=== PATIENT | male | born 1950 | race Caucasian/White ===

== ENCOUNTER 2017-03-26 12:49 | Inpatient (IN) | payer OTHER ==
[~2017-03-26] VITALS: Ht 188 cm; Wt 147.5 kg
[2017-03-26] VITALS (7 sets, daily range): BP systolic 113–167; BP diastolic 46–63
[~2017-03-26 12:49] MED LIST: ADULT LOW DOSE81 M1 PO; ALENDRONATE SOD70 MG PO; AMLODIPINE BESYL5 MG PO; AMLODIPINE-BEN1 EAC4 PO; ASPIR 8181 M1 PO; ATORVASTATIN CA40 MG PO; BACTRIM,SEPT1 TABLET PO; BENADRYL25 MG PO; BENAZEPRIL HCL20 MG PO; CATAPRES0.1 MG PO; CENTRUM SILVER1 EAC1 PO; CLARINEX5 MG PO; CLARITIN,ALAVAR10 MG PO; CLONIDINE HCL0.1 MG PO; CLONIDINE HCL0.3 MG PO; CRESTOR10 MG PO; Claritin,Alavart PO; DITROPAN2.5 MG PO; DOK PLUS TABLE1 EACH PO; DULCOLAX10 MG PR; ERGOCALCIF50000 UNIT PO; FERROUS SULFAT325 MG PO; FISH OIL 1,0001 EA11 PO; FISH OIL CONC1 EACH PO; FLEET MINERAL133 ML PR; FLORASTOR250 MG PO; FUROSEMIDE40 MG PO; GLUCOPHAGE1000 MG PO; HUMALOG100 UNIT/1 SC; HUMALOG100 UNIT/2 SC; HYDROCHLOROTHIA25 MG PO; HYDROCODON-ACE1 EAC7 PO; HYDROMORPHONE HC2 MG PO; Habitrol,Nicoderm CQ TD; IRON325 MG PO; LANTUS 3 M100 UNITS/ SC; LANTUS 3 M100 UNITS1 SC; LASIX40 MG PO; LEVEMIR100 UNIT/2 SC; LIPITOR40 MG PO; LISINOPRIL40 MG PO; LO-DOSE ASPIRIN81 M2 PO; LOTENSIN20 MG PO; LOVENOX40 MG/0.4 SC; Lotrel 5/20 PO; MELOXICAM7.5 MG PO; METFORMIN HCL1000 MG PO; MILK OF MAGN PO; NORCO 5/3251 TABLET PO; NOVOLOG PE100 UNITS/ SC; OXYCODONE HCL5 MG PO; PANTOPRAZOLE SO40 MG PO; PRILOSEC OTC20 MG PO; SENOKOT S,PE1 TABLET PO; THERAGRAN1 TABLET PO; TRAMADOL HCL50 MG PO; TRULICITY0.75 MG/0. SC; TYLENOL REGULA325 MG PO; ULTRAM50 MG PO; VANCOMYCIN HCL1 GM IV; Vitamin D, Drisdol PO; WELLBUTRIN XL300 MG PO; XARELTO10 MG PO; ZOFRAN4 MG/2 ML IM; Zocor PO; [UNRECOGNIZED DRUG - OTHER]
[2017-03-26 13:59] LABS: HEMATOCRIT 16.3 % (38.0-50.0); MCH 21.2 PG (29.0-34.0); MCHC 28.2 G/DL (30.0-36.0); MCV 75.1 FL (86-99); NRBC (%) 1.3 /100 WBC (0-0); PLATELET COUNT 419 K/uL (156-360); RBC DIS.WIDTH-CV 17.6 % (11.8-14.6); RED BLOOD COUNT 2.17 M/uL (4.00-5.50); WHITE BLOOD COUNT 10.2 K/uL (4.1-10.2)
[2017-03-26 14:00] LABS: CHLORIDE 106 mEq/L (99-109); POTASSIUM 5.2 mEq/L (3.7-5.4); SODIUM 138 mEq/L (136-147)
[2017-03-26 14:01] LABS: GLUCOSE 98 mg/dL (70-99)
[2017-03-26 14:03] LABS: ANION GAP 12 MEQ/L (2-14)
[2017-03-26 14:05] LABS: GFR ESTIMATE (CALCULATED) 29 mL/min/
[2017-03-26 14:06] LABS: UREA NITROGEN (BUN) 48 mg/dL (9-23)
[2017-03-26 14:11] LABS: TROP-I INTERPRETATION NEGATIVE; TROPONIN-I 0.17 ng/mL (0.0-0.30)
[2017-03-26] MEDS ORDERED: AMLODIPINE-BEN1 EAC4 PO (15:41)
[2017-03-26] MEDS ORDERED: ATORVASTATIN CA40 MG PO (15:42)
[2017-03-26] MEDS ORDERED: TANZEUM30 MG/0.5 SC (15:43)
[2017-03-26] MEDS ORDERED: DESLORATADINE5 MG PO (15:46)
[2017-03-26] MEDS ORDERED: PRILOSEC20 MG PO (15:47)
[2017-03-26] MEDS ORDERED: LATANOPROST2.5 ML BOTH EYES (15:48)
[2017-03-26] MEDS ORDERED: FIBER0.4 GM PO (15:48)
[2017-03-26] MEDS ORDERED: HUMULIN R500 UNIT/1 SC ×2 (15:49)
[2017-03-26 18:10] LABS: IMM.RETIC FRACTION 12.9 % (3-19)
[2017-03-26 18:12] LABS: RETICULOCYTE COUNT 2.2 % (0.5-1.8)
[2017-03-26 18:18] LABS: HEMATOCRIT 19.4 % (38.0-50.0); MCV 75.2 FL (86-99)
[2017-03-26 18:50] LABS: IRON 12 MCG/DL (35-150)
[2017-03-26 19:09] LABS: FERRITIN 6 NG/ML (22-322)
[2017-03-26 22:19] LABS: TROP-I INTERPRETATION NEGATIVE; TROPONIN-I 0.12 ng/mL (0.0-0.30)
[2017-03-26 23:19] LABS: MCV 77.2 FL (86-99)
[2017-03-27] VITALS (16 sets, daily range): BP systolic 97–135; BP diastolic 48–63
[2017-03-27 00:38] LABS: POINT-OF-CARE METER ID UU13113698
[2017-03-27 02:10] LABS: TROP-I INTERPRETATION NEGATIVE; TROPONIN-I 0.12 ng/mL (0.0-0.30)
[2017-03-27 03:31] LABS: POINT-OF-CARE METER ID UU13113698
[2017-03-27 03:55] LABS: POINT-OF-CARE METER ID UU13113698
[2017-03-27 06:55] LABS: HEMATOCRIT 22.5 % (38.0-50.0); MCH 24.9 PG (29.0-34.0); MCV 77.9 FL (86-99); MEAN PLAT.VOLUME 10.2 uM^3 (9.0-12.4); NRBC (%) 1.5 /100 WBC (0-0); PLATELET COUNT 370 K/uL (156-360); RBC DIS.WIDTH-CV 17.2 % (11.8-14.6); RBC DIS.WIDTH-SD 48.7 % (39-53); WHITE BLOOD COUNT 11.8 K/uL (4.1-10.2)
[2017-03-27 06:59] LABS: RED BLOOD COUNT 2.89 M/uL (4.00-5.50)
[2017-03-27 07:18] LABS: ALKALINE PHOSPHATASE 55 IU/L (3-129); ANION GAP 10 MEQ/L (2-14); CHLORIDE 104 MEQ/L (99-109); DIRECT BILIRUBIN 0.3 mg/dL (0.0-0.3); GFR ESTIMATE (CALCULATED) 40 mL/min/; POTASSIUM 4.5 MEQ/L (3.7-5.4); SAMPLE HEMOLYSIS CHECK 0; SAMPLE ICTERIC CHECK 0; SAMPLE LIPEMIA CHECK 0; SODIUM 138 MEQ/L (136-147); TOTAL BILIRUBIN 0.9 MG/DL (0.0-1.0); UREA NITROGEN (BUN) 40 mg/dL (9-23)
[2017-03-27 07:19] LABS: GLUCOSE 56 mg/dL (70-99)
[2017-03-27 07:21] LABS: INTER. NORMALIZED RATIO 1.2; PROTHROMBIN TIME 12.1 (9.2-11.2); PTT 25.5 (25-32)
[2017-03-27 07:24] LABS: POINT-OF-CARE METER ID UU13113698; POINT-OF-CARE USER ID 515034806
[2017-03-27 08:00] LABS: POINT-OF-CARE METER ID UU13113781; POINT-OF-CARE USER ID ENVKC36
[2017-03-27 11:25] LABS: POINT-OF-CARE METER ID UU13113698; POINT-OF-CARE USER ID ENVKC36
[2017-03-27 16:38] LABS: POINT-OF-CARE METER ID UU13113698; POINT-OF-CARE USER ID ENVKC36
[2017-03-27 21:29] LABS: POINT-OF-CARE METER ID UU14174216
[2017-03-28] VITALS (10 sets, daily range): BP systolic 110–153; BP diastolic 57–71
[2017-03-28 05:28] LABS: BASOPHIL COUNT 0.1 K/uL (0-0.1); EOSINOPHIL COUNT 0.5 K/uL (0-0.3); HEMATOCRIT 24.7 % (38.0-50.0); IMMATURE GRANULOCYTE COUNT 0.1 K/uL; INSTRUMENT ABS NEUTROPHIL CT 9.2 K/uL; LYMPHOCYTE COUNT 2.3 K/uL (1.0-2.8); MCH 25.4 PG (29.0-34.0); MCV 79.4 FL (86-99); MONOCYTE (%) 8.5 % (3-12); MONOCYTE COUNT 1.1 K/uL (0-0.8); NEUTROPHIL (%) 69.1 % (45-76); NEUTROPHIL COUNT 9.2 K/uL (1.8-6.4); PLATELET COUNT 365 K/uL (156-360); RBC DIS.WIDTH-CV 17.5 % (11.8-14.6); RBC DIS.WIDTH-SD 50.6 % (39-53); RED BLOOD COUNT 3.11 M/uL (4.00-5.50); WHITE BLOOD COUNT 13.4 K/uL (4.1-10.2)
[2017-03-28 06:12] LABS: ALKALINE PHOSPHATASE 57 IU/L (3-129); ANION GAP 9 MEQ/L (2-14); CHLORIDE 104 MEQ/L (99-109); GFR ESTIMATE (CALCULATED) 46 mL/min/; SAMPLE HEMOLYSIS CHECK 0; SAMPLE ICTERIC CHECK 0; SAMPLE LIPEMIA CHECK 0; SODIUM 135 MEQ/L (136-147); UREA NITROGEN (BUN) 29 mg/dL (9-23)
[2017-03-28 06:36] LABS: GLUCOSE 150 mg/dL (70-99)
[2017-03-28 07:57] LABS: POINT-OF-CARE METER ID UU13113781; POINT-OF-CARE USER ID ENVKC36
[2017-03-28 10:56] LABS: POINT-OF-CARE METER ID UU13113698
[2017-03-28 11:10] LABS: ADD MIUA? NO; BILIRUBIN NEGATIVE; BLOOD NEGATIVE; COLOR YELLOW ((YELLOW)); GLUCOSE (STRIP) NEGATIVE; KETONES NEGATIVE; LEUKOCYTES NEGATIVE; NITRITE NEGATIVE; PROTEIN (STRIP) NEGATIVE; UCUL ADDED? NO; UROBILINOGEN 0.2 MG/DL (0.2-1.0)
[2017-03-28 11:21] LABS: POINT-OF-CARE METER ID UU13113781; POINT-OF-CARE USER ID 515034806
[2017-03-28 14:50] LABS: POC NON-PRINT COM 1 ND
[2017-03-28 16:24] LABS: POINT-OF-CARE METER ID UU13113781; POINT-OF-CARE USER ID ENVKC36
[2017-03-28 21:19] LABS: POINT-OF-CARE METER ID UU13113698
[2017-03-29 01:30] VITALS: BP 115/68
[2017-03-29 04:24] VITALS: BP 91/54
[2017-03-29 05:15] LABS: BASOPHIL COUNT 0.1 K/uL (0-0.1); EOSINOPHIL (%) 5.1 % (0-5); EOSINOPHIL COUNT 0.6 K/uL (0-0.3); HEMATOCRIT 27.9 % (38.0-50.0); IMMATURE GRANULOCYTE (%) 0.8 % (0.0-0.7); IMMATURE GRANULOCYTE COUNT 0.1 K/uL; INSTRUMENT ABS NEUTROPHIL CT 7.5 K/uL; MCH 25.5 PG (29.0-34.0); MCHC 31.2 G/DL (30.0-36.0); MCV 81.8 FL (86-99); MEAN PLAT.VOLUME 10.2 uM^3 (9.0-12.4); MONOCYTE (%) 7.7 % (3-12); MONOCYTE COUNT 0.9 K/uL (0-0.8); NEUTROPHIL (%) 67.4 % (45-76); NEUTROPHIL COUNT 7.5 K/uL (1.8-6.4); NRBC (%) 0.5 /100 WBC (0-0); PLATELET COUNT 335 K/uL (156-360); RBC DIS.WIDTH-CV 17.7 % (11.8-14.6); RED BLOOD COUNT 3.41 M/uL (4.00-5.50); WHITE BLOOD COUNT 11.1 K/uL (4.1-10.2)
[2017-03-29 05:38] LABS: ALKALINE PHOSPHATASE 59 IU/L (3-129); ANION GAP 9 MEQ/L (2-14); CHLORIDE 108 MEQ/L (99-109); GFR ESTIMATE (CALCULATED) 54 mL/min/; GLUCOSE 140 mg/dL (70-99); POTASSIUM 4.5 MEQ/L (3.7-5.4); SAMPLE HEMOLYSIS CHECK 0; SAMPLE ICTERIC CHECK 0; SAMPLE LIPEMIA CHECK 0; SODIUM 139 MEQ/L (136-147); TOTAL BILIRUBIN 1.1 MG/DL (0.0-1.0); UREA NITROGEN (BUN) 20 mg/dL (9-23)
[2017-03-29 07:35] VITALS: BP 136/61
[2017-03-29 08:11] LABS: POINT-OF-CARE METER ID UU14174216
[2017-03-29 11:07] VITALS: BP 128/59
[2017-03-29 19:02] VITALS: BP 145/66
[2017-03-29 19:30] VITALS: BP 128/78
[2017-03-29 20:47] LABS: POINT-OF-CARE METER ID UU14174216
[2017-03-30] VITALS: BP 117/58
[2017-03-30 03:30] VITALS: BP 116/54
[2017-03-30 07:04] VITALS: BP 139/65
[2017-03-30 07:53] LABS: POINT-OF-CARE METER ID UU13113698
[2017-03-30 10:18] LABS: HEMATOCRIT 29.7 % (38.0-50.0); MCH 25.9 PG (29.0-34.0); MCHC 30.6 G/DL (30.0-36.0); MCV 84.4 FL (86-99); MEAN PLAT.VOLUME 10.4 uM^3 (9.0-12.4); NRBC (%) 0.3 /100 WBC (0-0); PLATELET COUNT 357 K/uL (156-360); RBC DIS.WIDTH-SD 54.2 % (39-53); RED BLOOD COUNT 3.52 M/uL (4.00-5.50); WHITE BLOOD COUNT 11.7 K/uL (4.1-10.2)
[2017-03-30] MEDS ORDERED: NICOTINE PATCH1 EAC2 TD (10:58)
[2017-03-30] MEDS ORDERED: PANTOPRAZOLE SO40 MG PO (11:00)
[2017-03-30 11:19] LABS: POINT-OF-CARE METER ID UU13113698
[2017-03-30 12:57] VITALS: BP 135/60
== END 2017-03-30 12:57 | disposition home or self-care (01) | DRG 378 ==
LOC: EME 12:49 → 4EAST 16:28 → EDOF 16:28 → 4EAST 23:43
PROVIDERS: Hospitalist; Internal Medicine; Internal Medicine Gastroenterology
PROC: 30233N1 Transfusion of Nonautologous Red Blood Cells into Peripheral Vein, Percutaneous Approach (ICD-10-PCS; principal; 2017-03-27)
PROC: 0DB68ZX Excision of Stomach, Via Natural or Artificial Opening Endoscopic, Diagnostic (ICD-10-PCS; 2017-03-28)
PROC: 0DBK8ZX Excision of Ascending Colon, Via Natural or Artificial Opening Endoscopic, Diagnostic (ICD-10-PCS; 2017-03-29)
DX: K92.2 Gastrointestinal hemorrhage, unspecified (principal); N17.9 Acute kidney failure, unspecified; I24.8 Other forms of acute ischemic heart disease; R06.00 Dyspnea, unspecified; D64.9 Anemia, unspecified; J44.9 Chronic obstructive pulmonary disease, unspecified; E66.01 Morbid (severe) obesity due to excess calories; N40.0 Benign prostatic hyperplasia without lower urinary tract symptoms; R53.1 Weakness; K59.00 Constipation, unspecified; I10 Essential (primary) hypertension; E11.9 Type 2 diabetes mellitus without complications; E78.5 Hyperlipidemia, unspecified; Z96.649 Presence of unspecified artificial hip joint; R19.5 Other fecal abnormalities; F17.210 Nicotine dependence, cigarettes, uncomplicated; M19.90 Unspecified osteoarthritis, unspecified site; D12.4 Benign neoplasm of descending colon; K64.8 Other hemorrhoids; Z96.652 Presence of left artificial knee joint; K57.90 Diverticulosis of intestine, part unspecified, without perforation or abscess without bleeding; G47.33 Obstructive sleep apnea (adult) (pediatric); K57.30 Diverticulosis of large intestine without perforation or abscess without bleeding; R10.9 Unspecified abdominal pain; K44.9 Diaphragmatic hernia without obstruction or gangrene; K29.40 Chronic atrophic gastritis without bleeding; R26.2 Difficulty in walking, not elsewhere classified; K21.9 Gastro-esophageal reflux disease without esophagitis; I25.10 Atherosclerotic heart disease of native coronary artery without angina pectoris; R42 Dizziness and giddiness; Z88.0 Allergy status to penicillin; Z68.41 Body mass index [BMI] 40.0-44.9, adult; Z88.6 Allergy status to analgesic agent; Z79.4 Long term (current) use of insulin; Z86.010 Personal history of colon polyps; Z87.891 Personal history of nicotine dependence; Q27.33 Arteriovenous malformation of digestive system vessel; Z86.73 Personal history of transient ischemic attack (TIA), and cerebral infarction without residual deficits
CPT/HCPCS: 74176; 76770; 80048; 80053; 80069; 80076; 81003; 82272; 82607; 82728; 82746; 82948; 83540; 84100; 84466; 84484; 85014; 85018; 85025; 85027; 85045; 85610; 85730; 86900; 86901; 86920; 88305; 88342 TC; 93005; 94640; 94660; 94799; 99202; 99281; 99285; C9113; G0103; J1756; J1815; J2250; J3010; J7030; J7050; P9016

== ENCOUNTER 2018-01-28 15:15 | Inpatient (IN) | payer OTHER ==
[2018-01-28] VITALS (11 sets, daily range): BP systolic 90–133; BP diastolic 41–66
[~2018-01-28] VITALS: Ht 189.2 cm; Wt 138.0 kg
[~2018-01-28 15:15] MED LIST changes: +DESLORATADINE5 MG PO; +FIBER0.4 GM PO; +HUMULIN R500 UNIT/1 SC; +LATANOPROST2.5 ML BOTH EYES; +NICOTINE PATCH1 EAC2 TD; +PRILOSEC20 MG PO; +TANZEUM30 MG/0.5 SC
[2018-01-28 16:28] LABS: HEMATOCRIT 14.4 % (38.0-50.0); MCH 19.7 PG (29.0-34.0); MCHC 28.5 G/DL (30.0-36.0); MCV 69.2 FL (86-99); NRBC (%) 0.9 /100 WBC (0-0); PLATELET COUNT 478 K/uL (156-360); RBC DIS.WIDTH-CV 18.6 % (11.8-14.6); RBC DIS.WIDTH-SD 46.7 % (39-53); RED BLOOD COUNT 2.08 M/uL (4.00-5.50); WHITE BLOOD COUNT 12.3 K/uL (4.1-10.2)
[2018-01-28 16:30] LABS: ALBUMIN 3.7 g/dL (3.2-4.8); HEMOGLOBIN 4.1 G/DL (12.5-16.6)
[2018-01-28 16:31] LABS: CHLORIDE 104 mEq/L (99-109); SODIUM 137 mEq/L (136-147)
[2018-01-28 16:33] LABS: GLUCOSE 53 mg/dL (70-99); TOTAL PROTEIN 6.8 g/dL (6.4-8.3)
[2018-01-28 16:35] LABS: TOTAL BILIRUBIN 0.5 mg/dL (0.0-1.0)
[2018-01-28 16:36] LABS: ALKALINE PHOSPHATASE 59 IU/L (3-129)
[2018-01-28 16:37] LABS: CREATININE 2.5 mg/dL (0.6-1.3); GFR ESTIMATE (CALCULATED) 27 mL/min/ (58.99-99999)
[2018-01-28 16:38] LABS: AST (GOT) 10 IU/L (2-34); UREA NITROGEN (BUN) 43 mg/dL (9-23)
[2018-01-28 16:39] LABS: TROP-I INTERPRETATION NEGATIVE; TROPONIN-I 0.07 ng/mL (0.0-0.30)
[2018-01-28 16:40] LABS: ALT (GPT) 9 IU/L (3-49)
[2018-01-28 17:30] LABS: APPEARANCE CLEAR ((CLEAR)); BILIRUBIN NEGATIVE; BLOOD NEGATIVE; COLOR YELLOW ((YELLOW)); GLUCOSE (STRIP) NEGATIVE; KETONES NEGATIVE; LEUKOCYTES NEGATIVE; NITRITE NEGATIVE; PROTEIN (STRIP) NEGATIVE; UROBILINOGEN 0.2 MG/DL (0.2-1.0)
[2018-01-28] MEDS ORDERED: PROTONIX40 MG PO (19:16)
[2018-01-28 21:26] LABS: MAGNESIUM 2.1 mg/dL (1.3-2.7)
[2018-01-28 21:31] LABS: PHOSPHORUS 3.8 mg/dL (2.5-4.9)
[2018-01-29] VITALS (15 sets, daily range): BP systolic 112–134; BP diastolic 55–88
[2018-01-29 02:49] LABS: HEMATOCRIT 20.8 % (38.0-50.0); HEMOGLOBIN 6.4 G/DL (12.5-16.6); MCV 73.8 FL (86-99)
[2018-01-29 03:02] LABS: TROP-I INTERPRETATION NEGATIVE; TROPONIN-I 0.07 ng/mL (0.0-0.30)
[2018-01-29 08:08] LABS: HEMATOCRIT 22.8 % (38.0-50.0); MCH 23.4 PG (29.0-34.0); MCHC 30.7 G/DL (30.0-36.0); MCV 76.3 FL (86-99); NRBC (%) 1.2 /100 WBC (0-0); PLATELET COUNT 417 K/uL (156-360); RBC DIS.WIDTH-CV 21.2 % (11.8-14.6); RBC DIS.WIDTH-SD 58.9 % (39-53); WHITE BLOOD COUNT 11.7 K/uL (4.1-10.2)
[2018-01-29 08:14] LABS: RED BLOOD COUNT 2.99 M/uL (4.00-5.50)
[2018-01-29 08:31] LABS: CHLORIDE 104 MEQ/L (99-109); GFR ESTIMATE (CALCULATED) 38 mL/min/ (58.99-99999); POTASSIUM 4.6 MEQ/L (3.7-5.4); SODIUM 134 MEQ/L (136-147); UREA NITROGEN (BUN) 35 mg/dL (9-23)
[2018-01-29 08:33] LABS: CREATININE 1.9 MG/DL (0.6-1.3); GLUCOSE 89 mg/dL (70-99)
[2018-01-29 17:50] LABS: HEMATOCRIT 27.8 % (38.0-50.0); HEMOGLOBIN 8.6 G/DL (12.5-16.6); MCV 76.8 FL (86-99)
[2018-01-30 04:20] VITALS: BP 131/63
[2018-01-30 05:22] LABS: HEMATOCRIT 27.6 % (38.0-50.0); HEMOGLOBIN 8.3 G/DL (12.5-16.6); MCH 23.6 PG (29.0-34.0); MCHC 30.1 G/DL (30.0-36.0); MCV 78.6 FL (86-99); NRBC (%) 0.7 /100 WBC (0-0); PLATELET COUNT 437 K/uL (156-360); RBC DIS.WIDTH-CV 20.8 % (11.8-14.6); RBC DIS.WIDTH-SD 58.5 % (39-53); RED BLOOD COUNT 3.51 M/uL (4.00-5.50); WHITE BLOOD COUNT 10.7 K/uL (4.1-10.2)
[2018-01-30 05:49] LABS: ALBUMIN 3.5 G/DL (3.2-4.8); ALKALINE PHOSPHATASE 49 IU/L (3-129); ALT (GPT) 8 IU/L (3-49); AST (GOT) 13 IU/L (2-34); CHLORIDE 107 MEQ/L (99-109); CREATININE 1.4 MG/DL (0.6-1.3); GFR ESTIMATE (CALCULATED) 53 mL/min/ (58.99-99999); GLUCOSE 186 mg/dL (70-99); POTASSIUM 4.6 MEQ/L (3.7-5.4); SODIUM 138 MEQ/L (136-147); TOTAL BILIRUBIN 1.3 MG/DL (0.0-1.0); UREA NITROGEN (BUN) 25 mg/dL (9-23)
[2018-01-30 07:01] VITALS: BP 133/60
[2018-01-30 07:49] LABS: BASOPHIL (%) 0.8 % (0-1); BASOPHIL COUNT 0.1 K/uL (0-0.1); EOSINOPHIL (%) 4.7 % (0-5); EOSINOPHIL COUNT 0.5 K/uL (0-0.3); IMMATURE GRANULOCYTE (%) 0.7 % (0.0-0.7); LYMPHOCYTE (%) 12.2 % (15-42); LYMPHOCYTE COUNT 1.3 K/uL (1.0-2.8); MONOCYTE COUNT 0.9 K/uL (0-0.8); NEUTROPHIL (%) 73.6 % (45-76); NEUTROPHIL COUNT 7.9 K/uL (1.8-6.4)
[2018-01-30 08:47] LABS: HEMOGLOBIN A1c (GLYCOHEMOGLOB) 5.3 % (Below 5.7)
[2018-01-30 11:15] VITALS: BP 140/65
[2018-01-30 15:09] VITALS: BP 150/68
[2018-01-30 20:09] VITALS: BP 136/61
[2018-01-31] VITALS (7 sets, daily range): BP systolic 126–167; BP diastolic 60–71
[2018-01-31 05:20] LABS: BASOPHIL (%) 0.8 % (0-1); BASOPHIL COUNT 0.1 K/uL (0-0.1); EOSINOPHIL (%) 5.2 % (0-5); EOSINOPHIL COUNT 0.5 K/uL (0-0.3); HEMATOCRIT 26.6 % (38.0-50.0); HEMOGLOBIN 7.9 G/DL (12.5-16.6); IMMATURE GRANULOCYTE (%) 0.6 % (0.0-0.7); LYMPHOCYTE (%) 14.8 % (15-42); LYMPHOCYTE COUNT 1.5 K/uL (1.0-2.8); MCH 23.4 PG (29.0-34.0); MCHC 29.7 G/DL (30.0-36.0); MCV 78.7 FL (86-99); MONOCYTE (%) 8.6 % (3-12); MONOCYTE COUNT 0.9 K/uL (0-0.8); NRBC (%) 0.3 /100 WBC (0-0); PLATELET COUNT 431 K/uL (156-360); RBC DIS.WIDTH-CV 21.2 % (11.8-14.6); RBC DIS.WIDTH-SD 59.8 % (39-53); RED BLOOD COUNT 3.38 M/uL (4.00-5.50)
[2018-01-31 05:46] LABS: ALBUMIN 3.2 G/DL (3.2-4.8); ALKALINE PHOSPHATASE 53 IU/L (3-129); ALT (GPT) 8 IU/L (3-49); AST (GOT) 13 IU/L (2-34); CHLORIDE 108 MEQ/L (99-109); CREATININE 1.2 MG/DL (0.6-1.3); GFR ESTIMATE (CALCULATED) > 59 mL/min/ (58.99-99999); GLUCOSE 169 mg/dL (70-99); POTASSIUM 4.2 MEQ/L (3.7-5.4); SODIUM 139 MEQ/L (136-147); TOTAL PROTEIN 5.7 G/DL (6.4-8.3); UREA NITROGEN (BUN) 15 mg/dL (9-23)
[2018-01-31 05:51] LABS: TOTAL BILIRUBIN 0.8 MG/DL (0.0-1.0)
[2018-01-31 18:06] LABS: HEMATOCRIT 30.7 % (38.0-50.0); HEMOGLOBIN 9.3 G/DL (12.5-16.6); MCV 80.4 FL (86-99)
== END 2018-01-31 18:56 | disposition home or self-care (01) | DRG 378 ==
LOC: EME 15:15 → 4EAST 20:05 → EDOF 20:05 → ENRESERV 20:06 → 4EAST 22:29
PROVIDERS: Hospitalist; Nurse Practitioner Family
PROC: 30233N1 Transfusion of Nonautologous Red Blood Cells into Peripheral Vein, Percutaneous Approach (ICD-10-PCS; principal; 2018-01-28)
DX: K92.2 Gastrointestinal hemorrhage, unspecified (principal); N17.9 Acute kidney failure, unspecified; I95.9 Hypotension, unspecified; E11.649 Type 2 diabetes mellitus with hypoglycemia without coma; I44.1 Atrioventricular block, second degree; D64.9 Anemia, unspecified; M54.2 Cervicalgia; I35.0 Nonrheumatic aortic (valve) stenosis; J44.9 Chronic obstructive pulmonary disease, unspecified; I10 Essential (primary) hypertension; E78.5 Hyperlipidemia, unspecified; K21.9 Gastro-esophageal reflux disease without esophagitis; F41.9 Anxiety disorder, unspecified; G47.33 Obstructive sleep apnea (adult) (pediatric); Z96.642 Presence of left artificial hip joint; E66.01 Morbid (severe) obesity due to excess calories; Z68.38 Body mass index [BMI] 38.0-38.9, adult; I69.351 Hemiplegia and hemiparesis following cerebral infarction affecting right dominant side; I69.311 Memory deficit following cerebral infarction; I69.398 Other sequelae of cerebral infarction; R20.9 Unspecified disturbances of skin sensation; Z79.4 Long term (current) use of insulin; Z87.891 Personal history of nicotine dependence; Z87.11 Personal history of peptic ulcer disease
CPT/HCPCS: 70450; 71045; 71046; 72125; 74176; 80048; 80053; 81003; 82607; 82948; 83036; 83735; 84100; 84484; 85014; 85018; 85025; 85027; 86850; 86900; 86901; 86920; 93005; 93306; 99281; 99285; A6214; C9113; J1815; J3010; J7030; J7042; P9016

== ENCOUNTER 2018-02-04 07:56 | Inpatient (IN) | payer OTHER ==
[~2018-02-04] VITALS: Ht 188 cm; Wt 132.9 kg
[~2018-02-04 07:56] MED LIST changes: +PROTONIX40 MG PO
[2018-02-04 09:03] LABS: HEMATOCRIT 32.7 % (38.0-50.0); MCH 24.7 PG (29.0-34.0); MCHC 30.6 G/DL (30.0-36.0); MCV 80.7 FL (86-99); PLATELET COUNT 381 K/uL (156-360); RBC DIS.WIDTH-SD 64.3 % (39-53); RED BLOOD COUNT 4.05 M/uL (4.00-5.50); WHITE BLOOD COUNT 8.2 K/uL (4.1-10.2)
[2018-02-04 09:13] LABS: ALBUMIN 3.7 g/dL (3.2-4.8); CHLORIDE 105 mEq/L (99-109)
[2018-02-04 09:14] LABS: POTASSIUM 3.9 mEq/L (3.7-5.4); SODIUM 140 mEq/L (136-147)
[2018-02-04 09:15] LABS: APPEARANCE CLEAR ((CLEAR)); BILIRUBIN NEGATIVE; BLOOD NEGATIVE; COLOR YELLOW ((YELLOW)); GLUCOSE (STRIP) NEGATIVE; KETONES NEGATIVE; LEUKOCYTES SMALL; NITRITE NEGATIVE; PROTEIN (STRIP) NEGATIVE; SPECIFIC GRAVITY 1.013 (1.000-1.030); UROBILINOGEN 0.2 MG/DL (0.2-1.0)
[2018-02-04 09:16] LABS: GLUCOSE 76 mg/dL (70-99); TOTAL PROTEIN 6.9 g/dL (6.4-8.3)
[2018-02-04 09:18] LABS: BACTERIA NONE SEEN /HPF; EPITHELIAL CELLS RARE /HPF; MUCUS TRACE /LPF; RED BLOOD CELLS 0-5 /HPF (0-5); UCUL ADDED? NO; WHITE BLOOD CELLS 0-5 /HPF (0-5)
[2018-02-04 09:19] LABS: ALKALINE PHOSPHATASE 65 IU/L (3-129); TOTAL BILIRUBIN 0.7 mg/dL (0.0-1.0)
[2018-02-04 09:20] LABS: CREATININE 1.1 mg/dL (0.6-1.3); GFR ESTIMATE (CALCULATED) > 59 mL/min/ (58.99-99999)
[2018-02-04 09:21] LABS: DIRECT BILIRUBIN 0.4 mg/dL (0.0-0.3); UREA NITROGEN (BUN) 14 mg/dL (9-23)
[2018-02-04 09:22] LABS: ALT (GPT) 12 IU/L (3-49); AST (GOT) 17 IU/L (2-34)
[2018-02-04 09:23] LABS: TROP-I INTERPRETATION NEGATIVE; TROPONIN-I 0.04 ng/mL (0.0-0.30)
[2018-02-04] MEDS ORDERED: HUMULIN R500 UNIT/1 SC (10:45)
[2018-02-04 18:09] VITALS: BP 143/67
[2018-02-04 19:10] VITALS: BP 143/63
[2018-02-04 23:15] VITALS: BP 141/63
[2018-02-05 02:58] VITALS: BP 133/63
[2018-02-05 08:35] VITALS: BP 163/72
[2018-02-05 12:07] VITALS: BP 125/96
[2018-02-05 16:13] VITALS: BP 131/81
[2018-02-05 19:00] VITALS: BP 137/64
[2018-02-05 23:11] VITALS: BP 144/65
[2018-02-06 03:21] VITALS: BP 138/61
[2018-02-06 05:32] LABS: BASOPHIL (%) 0.9 % (0-1); BASOPHIL COUNT 0.1 K/uL (0-0.1); EOSINOPHIL (%) 6.9 % (0-5); EOSINOPHIL COUNT 0.5 K/uL (0-0.3); HEMATOCRIT 28.9 % (38.0-50.0); HEMOGLOBIN 8.6 G/DL (12.5-16.6); IMMATURE GRANULOCYTE (%) 0.3 % (0.0-0.7); LYMPHOCYTE (%) 16.5 % (15-42); LYMPHOCYTE COUNT 1.3 K/uL (1.0-2.8); MCHC 29.8 G/DL (30.0-36.0); MCV 80.7 FL (86-99); MONOCYTE (%) 7.4 % (3-12); MONOCYTE COUNT 0.6 K/uL (0-0.8); NEUTROPHIL COUNT 5.4 K/uL (1.8-6.4); PLATELET COUNT 300 K/uL (156-360); RBC DIS.WIDTH-CV 21.9 % (11.8-14.6); RBC DIS.WIDTH-SD 64.1 % (39-53); RED BLOOD COUNT 3.58 M/uL (4.00-5.50); WHITE BLOOD COUNT 7.9 K/uL (4.1-10.2)
[2018-02-06 05:33] LABS: CHLORIDE 105 MEQ/L (99-109); CREATININE 1.1 MG/DL (0.6-1.3); GFR ESTIMATE (CALCULATED) > 59 mL/min/ (58.99-99999); POTASSIUM 4.5 MEQ/L (3.7-5.4); SODIUM 137 MEQ/L (136-147); UREA NITROGEN (BUN) 15 mg/dL (9-23)
[2018-02-06 05:38] LABS: GLUCOSE 174 mg/dL (70-99)
[2018-02-06 08:05] VITALS: BP 142/64
[2018-02-06 11:51] VITALS: BP 115/57
[2018-02-06 20:00] VITALS: BP 134/61
[2018-02-07] VITALS: BP 130/63
[2018-02-07 03:53] VITALS: BP 138/57
[2018-02-07 07:54] VITALS: BP 140/63
[2018-02-07 11:27] VITALS: BP 129/62
[2018-02-07 15:09] LABS: HEMATOCRIT 29.2 % (38.0-50.0); HEMOGLOBIN 8.8 G/DL (12.5-16.6); MCHC 30.1 G/DL (30.0-36.0); MCV 79.6 FL (86-99); PLATELET COUNT 314 K/uL (156-360); RBC DIS.WIDTH-CV 21.5 % (11.8-14.6); RBC DIS.WIDTH-SD 62.1 % (39-53); RED BLOOD COUNT 3.67 M/uL (4.00-5.50); WHITE BLOOD COUNT 8.3 K/uL (4.1-10.2)
[2018-02-07 15:24] VITALS: BP 119/60
[2018-02-07 19:36] VITALS: BP 119/61
[2018-02-08 00:13] VITALS: BP 132/63
[2018-02-08 07:41] VITALS: BP 129/62
[2018-02-08] MEDS ORDERED: LEVEMIR100 UNIT/2 SC (10:23)
[2018-02-08] MEDS ORDERED: AMOXICILLIN875 MG PO (10:25)
== END 2018-02-08 12:15 | disposition home or self-care (01) | DRG 872 ==
LOC: EME 07:56 → EDOF 11:51 → 4SOUTH 11:51 → ENRESERV 11:53 → CANRESERV 11:53 → ENRESERV 12:36 → 4SOUTH 17:56
PROVIDERS: Hospitalist; Physician Assistant
DX: R78.81 Bacteremia (principal); E87.2 Acidosis; E11.649 Type 2 diabetes mellitus with hypoglycemia without coma; E11.65 Type 2 diabetes mellitus with hyperglycemia; I35.0 Nonrheumatic aortic (valve) stenosis; J44.9 Chronic obstructive pulmonary disease, unspecified; K21.9 Gastro-esophageal reflux disease without esophagitis; T38.3X1A Poisoning by insulin and oral hypoglycemic [antidiabetic] drugs, accidental (unintentional), initial encounter; G47.33 Obstructive sleep apnea (adult) (pediatric); E66.01 Morbid (severe) obesity due to excess calories; E78.5 Hyperlipidemia, unspecified; I10 Essential (primary) hypertension; I44.1 Atrioventricular block, second degree; Z96.642 Presence of left artificial hip joint; B95.2 Enterococcus as the cause of diseases classified elsewhere; D64.9 Anemia, unspecified; F41.9 Anxiety disorder, unspecified; M19.90 Unspecified osteoarthritis, unspecified site; I95.9 Hypotension, unspecified; Z79.4 Long term (current) use of insulin; Z68.37 Body mass index [BMI] 37.0-37.9, adult; Z87.891 Personal history of nicotine dependence; Z90.49 Acquired absence of other specified parts of digestive tract; Z88.0 Allergy status to penicillin; Z88.1 Allergy status to other antibiotic agents; Z88.5 Allergy status to narcotic agent; Z80.9 Family history of malignant neoplasm, unspecified; Z82.5 Family history of asthma and other chronic lower respiratory diseases
CPT/HCPCS: 36415; 71045; 80048; 80076; 80170; 81003; 82565; 82948; 83605; 84443; 84484; 85025; 85027; 87040; 87077; 87186; 87801; 93005; 97530 GP; 99281; 99285; G0378; G8978 GP CJ; G8979 GP CH; G8987 GO CM; G8988 CI; J0290; J1580; J1815; J3370; J7050